=== PATIENT | female | born 1980 | race Caucasian/White ===

== ENCOUNTER → 2021-02-03 | Outpatient (CLI) | payer BC | LOC: SLEEP 15:00 | DX: G47.10 Hypersomnia, unspecified (principal) | CPT/HCPCS: 95810 ==

== ENCOUNTER → 2021-02-04 | Outpatient (CLI) | payer BC | LOC: SLEEP 08:00 | DX: G47.10 Hypersomnia, unspecified (principal) | CPT/HCPCS: 95805 ==